=== PATIENT | male | born 1955 | race Caucasian/White ===

== ENCOUNTER 2019-03-10 08:26 | Day surgery (SDC) | payer OTHER ==
[~2019-03-10] VITALS: Ht 182.9 cm; Wt 108.2 kg
[2019-03-10] MEDS ORDERED: LISI5 PO (09:03)
[2019-03-10] MEDS ORDERED: METF500 (09:03)
[2019-03-10] MEDS ORDERED: Amaryl1 MG PO (09:03)
[2019-03-10] MEDS ORDERED: Lipitor20 MG PO (09:04)
[2019-03-10] MEDS ORDERED: ASPI81CH PO (09:04)
[2019-03-10] MEDS ORDERED: VITAMIN D-32000 UNIT PO (09:04)
== END 2019-03-10 10:34 | disposition home or self-care (01) ==
LOC: ORSCSDS 08:26
PROVIDERS: Internal Medicine Gastroenterology
PROC: 0DBN8ZX Excision of Sigmoid Colon, Via Natural or Artificial Opening Endoscopic, Diagnostic (ICD-10-PCS; principal; 2019-03-10 09:45)
DX: Z12.11 Encounter for screening for malignant neoplasm of colon (principal); Z86.010 Personal history of colon polyps; D12.5 Benign neoplasm of sigmoid colon; K57.30 Diverticulosis of large intestine without perforation or abscess without bleeding; K64.8 Other hemorrhoids; E11.9 Type 2 diabetes mellitus without complications; I10 Essential (primary) hypertension; E78.5 Hyperlipidemia, unspecified; E66.9 Obesity, unspecified; Z68.33 Body mass index [BMI] 33.0-33.9, adult; Z79.82 Long term (current) use of aspirin; Z79.84 Long term (current) use of oral hypoglycemic drugs; Z79.899 Other long term (current) drug therapy
CPT/HCPCS: 82947; 88305; J2704; J7120